=== PATIENT | male | born 1985 | race Caucasian/White ===

== ENCOUNTER 2017-09-02 20:26 | Emergency (ER) | payer MEDICAID ==
[~2017-09-02] VITALS: Ht 167.6 cm; Wt 88.2 kg
[2017-09-02 21:13] VITALS: BP 139/74
== END 2017-09-02 21:21 | disposition home or self-care (01) ==
LOC: ED 21:19
DX: K64.8 Other hemorrhoids (principal)
CPT/HCPCS: 99283

== ENCOUNTER 2017-09-22 15:51 | Emergency (ER) | payer MEDICAID ==
[~2017-09-22] VITALS: Ht 167.6 cm; Wt 86.0 kg
[2017-09-22 15:57] VITALS: BP 141/96
[2017-09-22 17:49] LABS: RAPID INFLUENZA A INCONCLUSIVE (Negative)
[2017-09-22 17:51] LABS: RAPID INFLUENZA B INCONCLUSIVE (Negative)
== END 2017-09-22 19:59 | disposition home or self-care (01) ==
LOC: ED 19:18
DX: J09.X2 Influenza due to identified novel influenza A virus with other respiratory manifestations (principal)
CPT/HCPCS: 71020; 87400; 99285

== ENCOUNTER 2019-03-18 02:48 | Emergency (ER) | payer SELFPAY ==
[~2019-03-18] VITALS: Ht 167.6 cm; Wt 82.9 kg
[2019-03-18 02:50] VITALS: BP 141/96
[2019-03-18] MEDS ORDERED: LORazepam 1MG TABLET ONE (03:10)
[2019-03-18] MEDS ORDERED: LORazepam 1MG TABLET PO ONE (03:30)
== END 2019-03-18 03:54 | disposition home or self-care (01) ==
LOC: ED 03:40
DX: F41.9 Anxiety disorder, unspecified (principal); F15.129 Other stimulant abuse with intoxication, unspecified; F17.200 Nicotine dependence, unspecified, uncomplicated
CPT/HCPCS: 93005; 99284